=== PATIENT | male | born 1940 | race Caucasian/White ===

== ENCOUNTER 2023-07-03 09:10 | Emergency (ER) | payer OTHER ==
[~2023-07-03] VITALS: Ht 172.7 cm; Wt 93.0 kg
[~2023-07-03 09:10] MED LIST: ALTACE1.25 M1
[2023-07-03] MEDS ORDERED: PRAVASTATIN SOD20 MG PO (09:43)
[2023-07-03] MEDS ORDERED: ST. JOSEPH ASPI81 M2 PO (09:43)
[2023-07-03] MEDS ORDERED: METFORMIN HCL500 M4 PO (09:43)
[2023-07-03] MEDS ORDERED: METOPROLOL SUCC25 MG PO (09:43)
[2023-07-03] MEDS ORDERED: VITAMIN B-121000 MCG PO (09:44)
[2023-07-03] MEDS ORDERED: DICLOFENAC SODI75 MG PO (11:32)
[2023-07-03] MEDS ORDERED: NORFLEX100MG PO (11:32)
== END 2023-07-03 12:11 | disposition home or self-care (01) ==
LOC: ER 09:10
DX: M54.50 Low back pain, unspecified (principal); M54.9 Dorsalgia, unspecified; I10 Essential (primary) hypertension; E11.9 Type 2 diabetes mellitus without complications; Z79.84 Long term (current) use of oral hypoglycemic drugs
CPT/HCPCS: 72110; 96372; 99283; J1885; J2360

== ENCOUNTER 2023-07-13 11:06 | Emergency (ER) | payer OTHER ==
[~2023-07-13] VITALS: Ht 172.7 cm; Wt 93.0 kg
[~2023-07-13 11:06] MED LIST changes: +DICLOFENAC SODI75 MG PO; +METFORMIN HCL500 M4 PO; +METOPROLOL SUCC25 MG PO; +NORFLEX100MG PO; +PRAVASTATIN SOD20 MG PO; +ST. JOSEPH ASPI81 M2 PO; +VITAMIN B-121000 MCG PO
== END 2023-07-13 15:41 | disposition home or self-care (01) ==
LOC: ER 11:06
DX: M54.9 Dorsalgia, unspecified (principal); E11.9 Type 2 diabetes mellitus without complications; Z79.84 Long term (current) use of oral hypoglycemic drugs